=== PATIENT | male | born 1985 | race Caucasian/White ===

== ENCOUNTER 2024-07-23 17:02 | Observation (INO) ==
[2024-07-23] MEDS: MoRPHine SULFATE 4 MG/ML 1 ML CARP\\VIAL IV STA (17:37)
[2024-07-23] MEDS: ONDANSETRON INJ 2 MG/ML 2 ML VIAL IV STA (17:37)
[2024-07-23 17:59] LABS: Basophils # (auto) 0.06 K/uL (0.00-0.20); Basophils % (auto) 0.4 %; Eosinophils # (auto) 0.09 K/uL (0.00-0.50); Eosinophils % (auto) 0.7 %; Hematocrit (blood only) 44.2 % (42.0-52.0); Hemoglobin 15.4 g/dl (14.0-18.0); Immature Granulocytes # (auto) 0.07 K/uL (0.01-0.20); Immature Granulocytes % (auto) 0.5 %; Lymphocytes # (auto) 4.54 K/uL (1.20-3.40); Lymphocytes % (auto) 33.8 %; Mean Corpuscular Hemoglobin 30.1 pg (25.0-34.0); Mean Corpuscular Hgb Conc 34.8 g/dL (32.0-36.0); Mean Corpuscular Volume 86.5 fL (80.0-100.0); Mean Platelet Volume 9.4 fL (9.4-12.4); Monocytes # (auto) 1.19 K/uL (0.11-0.59); Monocytes % (auto) 8.9 %; Neutrophils # (auto) 7.47 K/uL (1.40-6.50); Neutrophils % (auto) 55.7 %; Platelet Count 330 K/uL (130-400); RDW Coefficient of Variation 12.4 % (11.5-14.5); RDW Standard Deviation 39.3 fL (36.4-46.3); Red Blood Count 5.11 M/uL (4.70-6.10); White Blood Count 13.42 K/ul (4.8-10.8)
[2024-07-23 18:10] LABS: BUN Creatinine Ratio 19.7 (10-20); Calcium 9.4 mg/dl (8.6-10.3); Creatinine Clr Calc Pharmacy 183.6 ml/min; Potassium 3.9 mmol/L (3.5-5.1)
[2024-07-23 18:21] LABS: Prothrombin Time 10.5 Seconds (9.0-12.0)
--- NOTE | 2024-07-23 18:24 | Emergency Department Note ---
Impression & Plan Acute right lumbar radiculopathy, Right foot drop ED Provider Note CHIEF COMPLAINT: Right leg pain, disc herniation, right foot drop HISTORY OF PRESENT ILLNESS: This 39-year-old male patient presents to the emergency department via private vehicle at the recommendation of orthopedic spine surgery. The patient injured his low back last Tuesday. He was seen at an outside facility in [place] and had an MRI completed. This showed a disc herniation at L4-L5. The patient states that since that time, he has had progressive pain in the right hip and right leg as well as a foot drop. He describes dragging his foot as he is ambulating. He states that "it feels like someone is putting a hot poker on my right hip". He states he was seen today by Dr. Hall and due to the progressive symptoms, was referred to the emergency department for admission for pain control and possible surgery if symptoms persist. The patient denies loss of control of his bowel or bladder function. He has been taking Hemlock, gabapentin, Robaxin, and a Medrol Dosepak without relief of his symptoms. History provided by: Patient and REVIEW OF SYSTEMS: A 10 system review of systems was performed with positives and pertinent negatives listed in the history of present illness. All other systems were reviewed and are negative. ALLERGIES: NKDA PHYSICAL EXAM: VITALS: Vitals are noted on the nurse's note and reviewed by myself. GENERAL: This is a 39 year old male, in no acute distress, nondiaphoretic, well- developed well-nourished. SKIN: The skin was without rashes, erythema, edema, or bruising. There is no tenting of the skin. Capillary refill less than 2 seconds. HEAD: Normocephalic atraumatic. EYES: Conjunctivae without injection, sclerae without icterus. MOUTH: Mucous membranes moist. NECK: Supple without nuchal rigidity. No lymphadenopathy. Cervical spine is nontender. No JVD. HEART: Regular rate and rhythm without murmurs gallops or rubs. LUNGS: Clear to auscultation bilaterally without wheezes, rales or rhonchi. No retractions or accessory muscle use. ABDOMEN: Positive bowel sounds x 4. Soft, nontender, without masses or organomegaly. MUSCULOSKELETAL: Tenderness in the lumbar region. The patient does have a right foot drop. No muscle atrophy, erythema, or edema noted. Full range of motion without joint tenderness in all extremities. Limping gait. Strength 5/5 throughout. NEURO: Patient was alert and oriented to person place and time. Decreased sensation to the RLE. EMERGENCY DEPARTMENT COURSE: The patient was seen and evaluated as above. The patient presented to the emergency department at the recommendation of the orthopedic spine surgeon for management of his lumbar radiculopathy. The patient injured himself last week and has had progressive right foot drop and right lower extremity pain and radicular symptoms. Given patient's increased pain, he was referred to the emergency department for pain control, observation, potentially surgery if needed. I discussed the case with Dr. Hall, orthopedic spine surgeon. He requested some basic labs to be drawn and that the patient be admitted. He notes the patient does not need to be made n.p.o. at this time. He will have his pain managed and to be further evaluated tomorrow. Will make a decision whether or not the patient requires surgery at that time. IV access was obtained, labs were drawn. There is a mild leukocytosis of 13,000. Suspect this to be related to the patient's recent steroid use. No anemia or thrombocytopenia. Renal function and electrolytes without significant abnormality. INR 1.0. Patient was medicated with IV morphine and Zofran. Discussed the case with the litigation manager. Please see Dr. Hall's dictation regarding ongoing management and final disposition of this patient. I attest that I have personally reviewed the patient medication list. I attest that I have reviewed the patient's blood pressure and it was found to be elevated. Suspect this to be situational in nature. GCS: 15 In the evaluation and treatment of this patient the following differential diagnoses were entertained: Musculoskeletal, disc herniation, fracture, metastatic disease, cord compression, discitis, sciatica, cauda equina, infection, aortic disease, renal colic, gastrointestinal, as well as other pathologies. The chart was completed utilizing [employer] Speech voice recognition software. Grammatical errors, random word insertions, pronoun errors, and incomplete sentences are an occasional consequence of this system due to software limitations, ambient noise, and hardware issues. Any formal questions or concerns about the content, text, or information contained within the body of this dictation should be directly addressed to the provider for clarification. Past Med/Surg History Problem List Lumbar stenosis without neurogenic claudication Medical History Right foot drop Herniation of lumbar intervertebral disc with radiculopathy L4-L5 disc bulge Sciatica of right side Social History Smoking Status: Current every day smoker Preferred Language: Persian Feels Safe at Home: Yes Home Meds Home Medications Medication Instructions Recorded Confirmed hydrocodone 5 mg-acetaminophen 325 1 tab PO Q4H PRN Pain 07/23/24 07/23/24 mg tablet methocarbamol 750 mg tablet 750 mg PO QID 07/23/24 07/23/24 methylprednisolone 4 mg tablets in 4 mg PO DIRECTED 07/23/24 07/23/24 a dose pack Previous Rx's Medication Instructions Recorded gabapentin 300 mg capsule See Rx Instructions .Route 07/20/24 .COMPLEX #5 caps Results & Data (ED) Vital Signs Vital Signs - 24 hr 07/23/24 17:10 07/23/24 17:21 07/23/24 17:36 Temperature 36.6 C Temperature Source Skin Pulse Rate 93 H 74 74 Pulse Rate from SpO2 Sensor 77 Pulse Rhythm Regular Respiratory Rate 18 18 11 L Blood Pressure 155/103 H 144/111 H Blood Pressure Mean 120 122 Pulse Oximetry 98 99 98 Oxygen Delivery Method Room Air Room Air Sepsis Recent Fever Within 48 Hours No Sepsis New/Unexplained Change in Mental Status No Sepsis Action Taken by Nursing No Action Required 07/23/24 17:39 07/23/24 18:30 07/23/24 18:36 Temperature Temperature Source Pulse Rate 85 66 Pulse Rate from SpO2 Sensor 67 Pulse Rhythm Respiratory Rate 18 Blood Pressure 147/96 H Blood Pressure Mean 123 Pulse Oximetry 95 Oxygen Delivery Method Sepsis Recent Fever Within 48 Hours Sepsis New/Unexplained Change in Mental Status Sepsis Action Taken by Nursing Laboratory Data 07/23/24 17:38 07/23/24 17:38 Lab Results 07/23/24 Range/Units 17:38 WBC 13.42 H (4.8-10.8) K/ul RBC 5.11 (4.70-6.10) M/uL Hgb 15.4 (14.0-18.0) g/dl Hct 44.2 (42.0-52.0) % MCV 86.5 (80.0-100.0) fL MCH 30.1 (25.0-34.0) pg MCHC 34.8 (32.0-36.0) g/dL RDW Std Deviation 39.3 (36.4-46.3) fL RDW Coeff of Susan 12.4 (11.5-14.5) % Plt Count 330 (130-400) K/uL MPV 9.4 (9.4-12.4) fL Immature Gran % (Auto) 0.5 % Neut % (Auto) 55.7 % Lymph % (Auto) 33.8 % [place] % (Auto) 8.9 % Eos % (Auto) 0.7 % Baso % (Auto) 0.4 % Neut # (Auto) 7.47 H (1.40-6.50) K/uL Lymph # (Auto) 4.54 H (1.20-3.40) K/uL [place] # (Auto) 1.19 H (0.11-0.59) K/uL Eos # (Auto) 0.09 (0.00-0.50) K/uL Baso # (Auto) 0.06 (0.00-0.20) K/uL Immature Gran # (Auto) 0.07 (0.01-0.20) K/uL PT 10.5 (9.0-12.0) Seconds INR 1.0 (0.9-1.1) Sodium 139 (136-145) mmol/L Potassium 3.9 (3.5-5.1) mmol/L Chloride 104 (98-107) mmol/L Carbon Dioxide 27 (21-32) mmol/L Anion Gap 8 (3-11) BUN 13 (6-23) mg/dl Creatinine 0.66 (0.6-1.4) mg/dl Est Cr Clr Drug Dosing 183.6 ml/min eGFR 122.36 BUN/Creatinine Ratio 19.7 (10-20) Glucose 89 (70-99(Fasting)) mg/dl Calcium 9.4 (8.6-10.3) mg/dl Administered Medications Discontinued Medications Morphine Sulfate (Morphine Sulfate 4 Mg/Ml 1 Ml Carp\\Vial) 4 mg IV NOW STA Stop: 07/23/24 17:34 Last Admin: 07/23/24 17:37 Dose: 4 mg Documented By: JUAN Ondansetron HCl (Ondansetron Inj 2 Mg/Ml 2 Ml Vial) 4 mg IV NOW STA Stop: 07/23/24 17:34 Last Admin: 07/23/24 17:37 Dose: 4 mg Documented By: JUAN Discharge Plan Visit Data Chief Complaint: Leg Injury/Pain Stated Complaint: RT LEG PAIN, HIP ED Provider: Cezar Nick ED Midlevel Provider: Socorro Daley Prescriptions Prescriptions: No Action gabapentin 300 mg capsule See Rx Instructions .ROUTE .COMPLEX Qty: 5 0RF Rx Instructions: 300 mg orally once a day for 1 days then twice daily for 2 days. PICKED UP ON 07/21 hydrocodone-acetaminophen 5-325 mg tablet 1 tab PO Q4H PRN (Reason: Pain) Rx Instructions: PICKED UP ON 07/21 FOR 5 DAY SUPPLY. methocarbamol 750 mg tablet 750 mg PO QID Rx Instructions: 5 DAY SUPPLY ON 07/21 methylprednisolone 4 mg tablets,dose pack 4 mg PO DIRECTED Rx Instructions: MEDROL DOSE PACK STARTED ON 07/21 TAPERING DOSE.
[2024-07-23] MEDS ORDERED: METOCLOPRAMIDE HCL INJ 5 MG/ML 2 ML VIAL IV PRN (18:29)
[2024-07-23] MEDS ORDERED: ONDANSETRON 4 MG OD TAB PO PRN (18:29)
[2024-07-23] MEDS ORDERED: PROMETHAZINE 12.5 MG/50.5 ML BAG IV PRN (18:29)
[2024-07-23] MEDS ORDERED: NALOXONE HCL 0.4 MG/1 ML VIAL/CARP IV PRN (18:29)
[2024-07-23] MEDS ORDERED: ONDANSETRON INJ 2 MG/ML 2 ML VIAL IV PRN (18:29)
[2024-07-23] MEDS ORDERED: ACETAMINOPHEN 500 MG TAB PO PRN (18:29)
[2024-07-23] MEDS ORDERED: hydrOXYzine HCl 25 MG TAB PO PRN (18:29)
[2024-07-23] MEDS ORDERED: ALUMINUM/MAGNESIUM SUSP 30 ML UDC PO PRN (18:34)
[2024-07-23] MEDS: HYDROmorphone INJ 0.5 MG/0.5 ML SYR IV PRN (19:11)
[2024-07-23] MEDS: METHOCARBAMOL 750 MG TABLET PO SCH (22:07)
[2024-07-23] MEDS: GABAPENTIN 300 MG CAP PO SCH (22:08)
[2024-07-23] MEDS: dexAMETHasone 10 MG in SYRINGE 0 ML IV SCH (22:08)
[2024-07-23] MEDS: DOCUSATE SODIUM/SENNA 50/8.6MG TAB PO SCH (22:16)
[2024-07-24] MEDS: oxyCODONE/ACETAMINOPHEN 5mg/325mg TAB PO PRN (05:25)
--- NOTE | 2024-07-24 08:35 | History & Physical Report ---
Date of Service July 24, 2024 Assessment & Plan (1) Right foot drop: (2) Acute right lumbar radiculopathy: (3) Lumbar stenosis without neurogenic claudication: (4) Herniation of lumbar intervertebral disc with radiculopathy: Plan Patient admitted from the emergency department last evening, started on IV Decadron 10 mg Q8 for 24 hours Resumed his home gabapentin and methocarbamol, I have changed his Freedom to oxycodone. On examination this morning patient's pain is slightly better controlled however are still severe, despite the addition of medications last night he was still only to sleep a few hours. Continues with right foot drop, I will have him mobilize some with physical therapy today, weightbearing as tolerated. I have concerns that his neurologic decline which has progressed over the weekend may continue, we discussed the possibility of a right L4-5 discectomy tomorrow if he does not improve significantly today as far as pain control and neurologic function. We discussed surgical intervention at length, and the patient was informed that risks include but are not limited to: bleeding, infection, blood clots to extremities or lungs, no relief or incomplete relief of symptoms, dural tear, nerve injury, paralysis, weakness, pain, prolonged recovery, need for physical therapy or rehabilitation services, loss of bowel/bladder control, recurrent stenosis or disc herniation, need for more surgery, and in very rare instances even . We also discussed the fact that this surgery is better for relief of the nerve pain in the lower extremities than back pain. The patient voiced understanding of the risks and benefits of surgery and elected to proceed if necessary. Hold all anticoagulation and anti-inflammatories for possible surgical intervention. For possible surgical intervention. History of Present Illness Chief Complaint: Right Leg pain, foot drop Primary Care Provider: NO PCP Patient is a 39-year-old gentleman who I evaluated in the office yesterday. 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 Described episode of severe back pain radiating into the right lower extremity, was unable to move his right foot at the time so he was taken by ambulance to a [facility] facility in [facility]. MRI was done there which demonstrated a large L4-5 disc herniation, he was started on prednisone Dosepak, gabapentin, methocarbamol and hydrocodone and discharged for follow-up closer to home. He presented to the emergency department here at [facility] the next evening for pain control, he was given IV pain medications, was reportedly moving his foot better at that time. Came to see me in the office yesterday with a complete right foot drop, difficulty with ambulation due to the leg pain and weakness on the right side. Reported he had not been sleeping over the weekend, steroids pain medication muscle relaxers and gabapentin were not helping. No change in bowel and bladder function. I was called by the emergency department with reports of his uncontrolled pain so I admitted him for pain control. Allergies Allergy/AdvReac Type Severity Reaction Status Date / Time No Known Allergies Allergy Unverified 07/23/24 19:05 Home Medications Medication Instructions Recorded Confirmed Type gabapentin 300 mg capsule See Rx Instructions .Route 07/20/24 07/23/24 Rx .COMPLEX #5 caps hydrocodone 5 mg-acetaminophen 325 1 tab PO Q4H PRN Pain 07/23/24 07/23/24 History mg tablet methocarbamol 750 mg tablet 750 mg PO QID 07/23/24 07/23/24 History methylprednisolone 4 mg tablets in 4 mg PO DIRECTED 07/23/24 07/23/24 History a dose pack Past Med/Surg History Problem List (Updated 07/24/24 @ 08:48 by Felix Hall MD) Herniation of lumbar intervertebral disc with radiculopathy Right foot drop (Acute) Acute right lumbar radiculopathy (Acute) Lumbar stenosis without neurogenic claudication Medical History Right foot drop Herniation of lumbar intervertebral disc with radiculopathy L4-L5 disc bulge Sciatica of right side Social History Smoking Status: Current every day smoker Tobacco Type: Cigarettes Cigarettes Per Day: 0.5 PACKS; Do You Dip or Chew Tobacco: Yes; Hx Alcohol Use: Yes Alcohol type: beer and hard liquor Hx Substance Use: No Preferred Language: [place] Communication Ability: Effective Residential Mental Health Worker Required: No Beliefs That Will Affect Care: None Current Living Situation: Spouse Feels Safe at Home: Yes Safety Concerns: Feels Safe At This Time Assistive Devices: Glasses Review of Systems All systems reviewed & are unremarkable except as noted in HPI & below. Physical Exam Constitutional: Well developed, appears stated age Psych: patient is coherent and answers questions appropriately, normal affect Eye: Normal gaze, no redness to sclera, pupils round and equal Pulm: Normal respiratory effort, no wheezing Cardiovascular: no significant peripheral edema, palpable DP/PT pulses Skin shows no rashes, lesions No midline or paraspinal tenderness with palpation over the lumbar spine, no stepoffs Motor strength is 5/5 in bilateral hip flexors, quadriceps, tibialis anterior, extensor hallucis longus, and gastroc/soleus complex with the exception of 0/5 strength right tibialis anterior EHL Sensation intact to light touch in the L2-S1 dermatomes bilaterally with the e xception of decreased sensation and paresthesias right L5, right S1 2+ reflexes at the achilles and patella tendons on the left, absent right Achilles we reflect and diminished right patellar reflex No ankle clonus Results & Data Results & Data Laboratory Results Slightly elevated white blood cell count most likely due to current steroid usage Diagnostic Findings MRI of the lumbar spine available from [facility] in [facility], large L4-5 disc herniation with severe central canal lateral recess stenosis and compression of multiple traversing nerve roots X-rays obtained in the office yesterday revealed maintained lumbar alignment, no evidence of instability PG Care Time/CCT Total # of Minutes Spent Total Time Spent with Patient: Total time spent is greater than 50% in coordination of care (as documented) at patient's floor/unit and/or counseling patient: Coding [place] [address] INT INP/OBS CARE 2/55MIN Patient Type Established History Problem Focused Exam Problem Focused Medical Decision Making High Complexity Diagnoses Right foot drop M21.371 Acute right lumbar radiculopathy M54.16 Lumbar stenosis without neurogenic claudication M48.061 Herniation of lumbar intervertebral disc with radiculopathy M51.16
[2024-07-24] MEDS: HYDROmorphone INJ 1 MG/ML SYRINGE IV PRN (19:49)
[2024-07-25] MEDS: LACTATED RINGER'S 1,000 ML IV SCH (00:22)
[2024-07-25] MEDS ORDERED: LIDOCAINE 2% 2 ML VIAL/AMP(20MG/ML) INFIL ONE (06:41)
[2024-07-25] MEDS ORDERED: MIDAZOLAM HCL 1 MG/ML 2ML VIAL ONE (06:41)
[2024-07-25] MEDS ORDERED: ROCURONIUM BROMIDE 10 MG/ML 5 ML VIAL IV ONE ×2 (06:41→07:53)
[2024-07-25] MEDS ORDERED: ONDANSETRON INJ 2 MG/ML 2 ML VIAL ONE (06:41)
[2024-07-25] MEDS ORDERED: DEXAMETHASONE SOD INJ 4 MG/ML VIAL ONE (06:41)
[2024-07-25] MEDS ORDERED: GLYCOPYRROLATE 0.2 MG/ML VIAL ONE (06:41)
[2024-07-25] MEDS ORDERED: SUGAMMADEX SODIUM 200 MG/2 ML VIAL IV ONE (06:41)
[2024-07-25] MEDS ORDERED: fentaNYL citrate PF 100 MCG/2 ML VIAL ONE (06:41)
[2024-07-25] MEDS ORDERED: PROPOFOL IV EMULSION 10 MG/ML 20 ML VIAL IV ONE ×2 (06:41→07:53)
[2024-07-25] MEDS ORDERED: KETAMINE HCL 10MG/ML SYR ONE (06:41)
--- NOTE | 2024-07-25 07:00 | History & Physical Bridge Note ---
Date of Service July 25, 2024 History & Physical Bridge Note I have examined the patient, reviewed the History & Physical and in the interval since the performance of the History & Physical I have noted the following changes of clinical significance: no changes noted, continued right foot drop, will proceed with L4-5 discectomy
--- NOTE | 2024-07-25 07:08 | Anesthesiology Consultation ---
Date of Service July 25, 2024 Assessment & Plan Chart Review Chart Review: Acceptable Risk for Surgery and Patient NOT seen in Pre Admission Testing Consults Requested none ASA ASA2 Proposed Anesthesia Anesthesia Type: General Risk / Benefits Reviewed With: PT / POA / Parent / Guardian, Accepts Plan and Informed Consent Obtained History Surgery Operation Date: 07/25/24 07:15 Proposed Procedures p Right L4-L5 Discectomy - Felix Hall MD Height/Weight Height: 6 ft Weight: 99.3 kg Allergies Allergy/AdvReac Type Severity Reaction Status Date / Time No Known Allergies Allergy Verified 07/25/24 06:06 Medications Home Medications Medication Instructions Recorded Confirmed Last Taken gabapentin 300 mg capsule See Rx Instructions .Route 07/20/24 07/23/24 Unknown .COMPLEX #5 caps hydrocodone 5 mg-acetaminophen 325 1 tab PO Q4H PRN Pain 07/23/24 07/23/24 Unknown mg tablet methocarbamol 750 mg tablet 750 mg PO QID 07/23/24 07/23/24 Unknown methylprednisolone 4 mg tablets in 4 mg PO DIRECTED 07/23/24 07/23/24 Unknown a dose pack Active Medications Generic Name Dose Route Start Last Admin Trade Name Freq PRN Reason Stop Dose Admin Gabapentin 300 mg 07/23/24 21:00 07/24/24 20:58 Gabapentin 300 Mg Cap PO 08/22/24 20:59 300 mg TID SHANEKA Administration Hydromorphone HCl 0.5 mg 07/23/24 18:29 07/24/24 12:52 Hydromorphone Inj 0.5 Mg/0.5 Ml Syr IV 08/06/24 18:28 0.5 mg Q3H PRN Administration MOD pain (scale 4-6) & Pre PT Hydromorphone HCl 1 mg 07/24/24 19:39 07/25/24 05:38 Hydromorphone Inj 1 Mg/Ml Syringe IV 08/07/24 19:38 1 mg Q3H PRN Administration SEV pain (scale 7-10) & Pre PT Lactated Ringer's 1,000 mls @ 80 mls/hr 07/25/24 00:01 07/25/24 00:22 Lr IV 07/25/24 12:30 80 mls/hr .[id number] SHANEKA Administration Methocarbamol 750 mg 07/23/24 21:00 07/24/24 20:58 Methocarbamol 750 Mg Tablet PO 08/22/24 20:59 750 mg QID SHANEKA Administration Oxycodone/Acetaminophen 1 - 2 tab 07/23/24 18:29 07/24/24 15:23 Oxycodone/Acetaminophen 5mg/325mg Tab PO 08/06/24 18:28 2 tab Q4H PRN Administration moderate to severe pain Senna/Docusate Sodium 2 tab 07/23/24 21:00 07/24/24 20:58 Docusate Sodium/Senna 50/8.6mg Tab PO 08/22/24 20:59 2 tab HS SHANEKA Administration NPO Date Last Intake of Fluids: 07/25/24 Time Last Intake of Fluids: 00:10 Date Last Intake of Solids: 07/24/24 Time Last Intake of Solids: 17:30 Past Medical History Medical History Right foot drop L4-L5 disc bulge Sciatica of right side Exercise / Class Metabolic Activity II 4-5 Yardwork/Stairs/Walk up hill Past Anesthesia History No Hx of Anesthesia Complications and No Family Hx of Anesthesia Complications History of PONV No Hx of PONV and No Hx of Motion Sickness Social History Smoking Status: Current every day smoker Smoking cigarettes per day: 0.5 PACKS Do You Dip or Chew Tobacco: Yes Hx Alcohol Use: Yes Alcohol type: beer and hard liquor alcohol intake frequency: a few times a week Hx Substance Use: No Review of Systems ROS Unobtainable: All systems reviewed & are unremarkable except as noted in HPI & below Physical Exam Vital Signs Last Vital Signs Temp 36.6 C 07/25/24 06:18 Pulse 67 07/25/24 06:18 Resp 16 07/25/24 06:18 BP 154/83 H 07/25/24 06:18 Pulse Ox 96 07/25/24 06:18 O2 Del Method Room Air 07/25/24 06:18 ENMT Mouth: no TMJ abnormality Thyromental Distance: > or= 3.5 Finger Breadths Mallampati Class: II Neck normal visual inspection and trachea midline; neck extension not limited Respiratory normal respiratory effort Auscultation: lungs clear to auscultation bilaterally Cardiovascular Rate/Rhythm: regular rate and regular rhythm Heart Sounds: no murmur Musculoskeletal Spine: normal cervical ROM Extremities: full ROM of extremities Neurologic moves all extremities Psychiatric Orientation: alert and oriented x 3 Testing Laboratory Results 07/23/24 17:38 07/23/24 17:38 PT 10.5 Seconds (9.0-12.0) 07/23/24 17:38 INR 1.0 (0.9-1.1) 07/23/24 17:38
[2024-07-25] MEDS ORDERED: HYDROmorphone INJ 2 MG/ML SYR/VIAL IV PRN (07:13)
[2024-07-25] MEDS ORDERED: ePHEDrine sulfate 50 MG/ML AMP IV PRN (07:13)
[2024-07-25] MEDS ORDERED: ATROPINE SULFATE 0.1 MG/ML 10ML SYR IV PRN (07:13)
[2024-07-25] MEDS ORDERED: HYDROmorphone INJ 1 MG/ML SYRINGE IV PRN (07:13)
[2024-07-25] MEDS: ceFAZolin 2000MG 2,000 MG/15 ML SYR IV SCH (07:20)
[2024-07-25] MEDS ORDERED: HYDROmorphone INJ 2 MG/ML SYR/VIAL ONE (07:21)
[2024-07-25] MEDS ORDERED: KETOROLAC 30 MG/ML VIAL ONE (08:53)
[2024-07-25] MEDS: FLOSEAL HEMOSTATIC MATRIX 10ML TOP ONE (09:09)
[2024-07-25] MEDS: GELATIN SPONGE 12-7MM ONE (09:10)
[2024-07-25] MEDS: VANCOMYCIN HCL 1000MG/20ML VIAL ONE (09:10)
[2024-07-25] MEDS: GELATIN SPONGE SZ 100 ONE (09:10)
[2024-07-25] MEDS: BUPIVACAINE/EPINEPHRINE 0.5% MPF 1:200,000 30 ML VIAL ONE (09:11)
--- NOTE | 2024-07-25 09:12 | Fluoroscopy Report ---
FL spine 1V any level CLINICAL HISTORY: RIGHT L4-L5 DISCECTOMY COMPARISON STUDY: Lumbar spine MRI July 19, 2024. Lumbar spine radiographs July 23, 2024. FLUOROSCOPY TIME: 8 seconds. Alyssa,r: 3.74 mGy FLUOROSCOPIC IMAGES: 2 FINDINGS: Fluoroscopy was provided during L4-L5 discectomy. Surgical retractors are noted. Surgical i nstruments are directed over the posterior elements and the central canal at the L4-L5 level. IMPRESSION: Fluoroscopy provided during L4-L5 discectomy. ACT 112: Negative or not required by law. Electronically signed by: Cesar Villa M.D. 07/25/2024 9:10 AM
--- NOTE | 2024-07-25 09:55 | Operative Report ---
PG Post Operative Report Pre & Post Diagnosis Operation Date: 07/25/24 07:15 Pre-Op Diagnosis: Right foot drop, Acute right lumbar radiculopathy, Lumbar stenosis without neurogenic claudication, Herniation of lumbar intervertebral disc with radiculopathy Post-Op Diagnosis: Right foot drop, Acute right lumbar radiculopathy, Lumbar stenosis without neurogenic claudication, Herniation of lumbar intervertebral disc with radiculopathy I identified the patient and participated in the time-out.: Yes Procedure Operation Date: 07/25/24 07:15 Actual Procedures p Right L4-L5 Discectomy(Right) - Felix Hall MD Surgeon Felix Hall MD Analytics Associate Alexander Cason PA-C Estimated Blood Loss 20 Findings Consistent with Post-Op Diagnosis Specimens None Drains No Anesthesia Type General Complications none Disposition Accompanied Patient To Recovery: Yes Disposition: Recovery Room Indications Patient was admitted through the emergency department for pain control. He suffered patient was admitted through the emergency department for pain control. He had a complete right foot drop. He was admitted for pain control and to try to ambulate with physical therapy. There was no improvement in neurologic function so he elected to proceed with right L4-5 discectomy due to intractable pain and advancing neurologic deficit. Description of Procedure Patient was brought to the operating room where general anesthesia was induced. He was placed in the prone position on the Сергей spine stable with Aquilino frame, frame was expanded to open the interlaminar spaces. He was prepped and draped in the usual sterile fashion. C-arm fluoroscopy used to approximate the skin incision. Verbal timeout performed identify the patient by name and date of . Skin was incised with a 10 blade scalpel. Bovie electrocautery was used to dissect down to the dorsal lumbar fascia.. Fascia was split midline over the spinous process and subperiosteal dissection was used to expose the right L4 lamina and superior L5 lamina. A nerve hook was placed into the L4-5 interlaminar space and fluoroscopy used to verify the correct level. A laminotomy was created resecting approximately 50% of the L4 lamina on the right and the superior aspect of the L5 lamina. Ligamentum flavum was removed. The dura was identified as well as the traversing L5 nerve root. The nerve root was retracted and protected by my regulatory assistant. There was a large disc herniation originating from the L4-5 disc space migrating superiorly along the L4 vertebral body. I extended the laminotomy exposure on the right L4 lamina took a fall of the disc herniation up to follow the disc herniation up. The disc fragment was grasped with a micropituitary and dissected out using nerve hook to free the fragment. It was tightly adherent to the under surface of the dura, a large 5 cm disc fragment was removed which was causing severe compression on the traversing L5 nerve root. I then swept underneath the dura using a nerve hook to ensure there was no remaining pieces of the disc fragment. The central dural sac and nerve root were well decompressed. There was no evidence of durotomy. Hemostasis was obtained using bipolar electrocautery and Floseal. The wound was thoroughly irrigated. Subcutaneous tissue and muscle was injected with 0.5% Marcaine with epinephrine. 30 mL used. The fascia was approximated with Vicryl pop-off sutures. Subcuticular layer was closed with 2-0 Vicryl interrupted sutures and a running Monocryl through the skin. Dermabond and Prineo was then applied over the incision. Sterile dressing applied. The patient was awakened from anesthesia and taken to PACU in stable condition. I attest to the content of the Intraoperative Record and any orders documented therein. Any exceptions are noted below.
[2024-07-25] MEDS: fentaNYL citrate PF 100 MCG/2 ML VIAL IV PRN (10:00)
--- NOTE | 2024-07-25 10:33 | Anesthesiology Progress Note ---
Date of Service July 25, 2024 Anesthesia Post Procedure Vital Signs Vital Signs: Temp Pulse Pulse Pulse Resp BP Pulse Ox 07/25/24 10:25 36.4 C L 68 18 142/89 H 97 07/25/24 10:15 74 15 148/99 H 97 07/25/24 10:05 74 15 149/97 H 99 07/25/24 09:55 78 16 157/82 H 99 07/25/24 09:45 80 16 160/99 H 99 07/25/24 09:39 36.6 C 86 16 160/87 H 100 07/25/24 06:18 36.6 C 67 67 16 154/83 H 96 07/25/24 05:53 36.5 C 66 16 156/79 H 95 07/25/24 00:21 76 152/86 H 07/24/24 19:32 36.6 C 106 H 16 159/105 H 98 07/24/24 14:50 36.7 C 97 H 18 178/98 H 97 O2 Del Method O2 Flow Rate 07/25/24 10:25 Room Air 07/25/24 10:15 Room Air 07/25/24 10:05 Room Air 07/25/24 09:55 Room Air 07/25/24 09:45 Oxymask 5 07/25/24 09:39 Oxymask 5 07/25/24 06:18 Room Air 07/25/24 05:53 Room Air 07/25/24 00:21 07/24/24 19:32 Room Air 07/24/24 14:50 Room Air Pain Intensity Back: Pain Intensity: 6 Right Hip: Pain Intensity: 5 Transfer of Care Handoff Completed per policy Notes Mental Status: alert / awake / arousable Patient Amnestic to Procedure: Yes Nausea / Vomiting: adequately controlled Pain: adequately controlled Airway Patency, RR, SpO2: stable & adequate BP & HR: stable & adequate Hydration State: stable & adequate Anesthetic Complications: no major complications apparent and Pt Satisfied with anesthetic care
[2024-07-25] MEDS ORDERED: ONDANSETRON INJ 2 MG/ML 2 ML VIAL IV PRN (10:44)
[2024-07-25] MEDS: LORazepam 0.5 MG TAB PO PRN (11:29)
--- NOTE | 2024-07-25 14:36 | Discharge Summary ---
Date of Service July 25, 2024 Admission HPI (Per Admitting) Patient is a 39-year-old gentleman who I evaluated in the office yesterday. 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 Described episode of severe back pain radiating into the right lower extremity, was unable to move his right foot at the time so he was taken by ambulance to a [facility] facility in [facility]. MRI was done there which demonstrated a large L4-5 disc herniation, he was started on prednisone Dosepak, gabapentin, methocarbamol and hydrocodone and discharged for follow-up closer to home. He presented to the emergency department here at [facility] the next evening for pain control, he was given IV pain medications, was reportedly moving his foot better at that time. Came to see me in the office yesterday with a complete right foot drop, difficulty with ambulation due to the leg pain and weakness on the right side. Reported he had not been sleeping over the weekend, steroids pain medication muscle relaxers and gabapentin were not helping. No change in bowel and bladder function. I was called by the emergency department with reports of his uncontrolled pain so I admitted him for pain control. Admission Exam (Per Admitting) Constitutional: Well developed, appears stated age Psych: patient is coherent and answers questions appropriately, normal affect Eye: Normal gaze, no redness to sclera, pupils round and equal Pulm: Normal respiratory effort, no wheezing Cardiovascular: no significant peripheral edema, palpable DP/PT pulses Skin shows no rashes, lesions No midline or paraspinal tenderness with palpation over the lumbar spine, no stepoffs Motor strength is 5/5 in bilateral hip flexors, quadriceps, tibialis anterior, extensor hallucis longus, and gastroc/soleus complex with the exception of 0/5 strength right tibialis anterior EHL Sensation intact to light touch in the L2-S1 dermatomes bilaterally with the exception of decreased sensation and paresthesias right L5, right S1 2+ reflexes at the achilles and patella tendons on the left, absent right Achilles we reflect and diminished right patellar reflex No ankle clonus Principal Diagnosis Same as "Discharge Diagnosis" noted below under Discharge Instructions. Discharge Exam continued right foot drop Discharge Data Procedures Performed Operation Date: 07/25/24 07:15 Actual Procedures p Right L4-L5 Discectomy(Right) - Felix Hall MD Ordered Studies 07/25/24 FL spine 1V any level Routine Hospital Course (1) Herniation of lumbar intervertebral disc with radiculopathy: (2) Right foot drop: (3) Acute right lumbar radiculopathy: (4) Lumbar stenosis without neurogenic claudication: Plan Patient was admitted for pain control due to large disc herniation causing radiculopathy and right foot drop. He failed to improve with IV steroids, attempted PT. Risks and benefits of surgery were discussed given worsening foot drop. He elected to proceed where a large disc herniation was extracted, he tolerated the procedure without complication. Pain improved, foot drop persists. Right ankle AFO was ordered, post op PT. Pain controlled, voiding. PG Care Time/CCT Total # of Minutes Spent Total Time Spent with Patient: Total time spent is greater than 50% in coordination of care (as documented) at patient's floor/unit and/or counseling patient: Discharge Plan Discharge Items Patient Disposition: Home - Self-Care Reason For Visit: RIGHT FOOT DROP Discharge Diagnosis: Lumbar Disc herniation Lumbar Radiculopathy Right Foot Drop Condition on Discharge: Good Activity: As commented below Activity Comment: follow instruction sheet provided Lifting: No more than 5 pounds Bathing Comment: follow instruction sheet Exercise Comment: call office to start outpatient PT next week Non-emergency contact: Surgeon Call non-emergency contact if: your symptoms worsen, your pain is worsening, your temperature is above 101, your wound has increased redness and your wound has increased drainage Follow-up/Referrals: PCP,NO [Primary Care Provider] - Diet: Regular Addtl Attending Provider Instructions: follow post op instruction sheet provided Pending Studies at Discharge: No Stand-Alone Forms: My [facility] [employer], Smoking Cessation Medications and DC Order Prescriptions: New oxycodone-acetaminophen 7.5-325 mg tablet 1 tab PO Q6H PRN (Reason: post op pain) 7 Days Qty: 28 0RF Continued gabapentin 300 mg capsule See Rx Instructions .ROUTE .COMPLEX Qty: 5 0RF Rx Instructions: 300 mg orally once a day for 1 days then twice daily for 2 days. PICKED UP ON 07/21 methocarbamol 750 mg tablet 750 mg PO QID Rx Instructions: 5 DAY SUPPLY ON 07/21 Discontinued hydrocodone-acetaminophen 5-325 mg tablet 1 tab PO Q4H PRN (Reason: Pain) Rx Instructions: PICKED UP ON 07/21 FOR 5 DAY SUPPLY. methylprednisolone 4 mg tablets,dose pack 4 mg PO DIRECTED Rx Instructions: MEDROL DOSE PACK STARTED ON 07/21 TAPERING DOSE. Admission Data Admit Date/Time: 07/23/24 18:29 Attending Provider: Felix Hall Admit Provider: Felix Hall Primary Care Provider: PCPSOSA
[2024-07-25] MEDS ORDERED: bisacodyL 10 MG SUPP PR PRN (18:29)
[2024-07-26] MEDS: POLYETHYLENE (MIRALAX) 17 GM PACK PO SCH (06:30)
[2024-07-26 07:51] VITALS: BP 151/80; PULSE 55; RESP 16; TEMP 98.4; O2SAT 94
--- NOTE | 2024-07-26 10:17 | Orthopedic Progress Note ---
Date of Service July 26, 2024 Assessment & Plan (1) S/P lumbar discectomy: Plan: This time the patient is quite comfortable. He plans to discharge home. Discharge orders instructions reviewed in detail. Admission and Anticipated Discharge Date Admission Date: July 23, 2024 Subjective Patient is right leg pain is markedly improved. He is quite comfortable. Back pain controlled. Physical Exam Physical Exam: On exam patient is in the chair at the bedside. He is comfortable. He is wearing an AFO to the right foot. Sensory is intact. Motor function is noted to testing. Results & Data Vital Signs (Past 12 Hours) Vital Signs Temp Pulse Resp BP Pulse Ox O2 Del Method 07/26/24 07:50 36.9 C 55 L 16 151/80 H 94 Room Air 07/26/24 03:00 36.7 C 58 L 18 155/77 H 95 Room Air 07/25/24 23:00 36.6 C 50 L 18 145/82 H 97 Room Air
== END 2024-07-26 13:52 | disposition home or self-care (01) ==
LOC: 3E 17:02 → ED 17:02 → 3E 20:13